=== PATIENT | female | born 2000 | race Caucasian/White ===

== ENCOUNTER 2023-09-23 14:28 | Emergency (ER) | payer SELFPAY ==
[2023-09-23 15:00] LABS: GLUCOSE, URINE (UA) 250 mg/dL (NEGATIVE); KETONES,URINE (UA) >=80 mg/dL (NEGATIVE)
[2023-09-23 15:05] LABS: BILIRUBIN,URINE NEGATIVE (NEGATIVE); CLARITY,URINE SL. CLOUDY (CLEAR); HCG UR QUAL NEGATIVE; ICTOTEST,URINE NEGATIVE
[2023-09-23 15:05] LABS: BASOPHILS % (AUTO) 0.2 %; EOSINOPHILS # (AUTO) 0.1 10^3/uL (0.0-0.7); EOSINOPHILS % (AUTO) 0.3 %; HGB - HEMOGLOBIN 13.8 g/dL (12.0-16.0); LYMPHOCYTES # (AUTO) 0.8 10^3/uL (1.5-3.5); LYMPHOCYTES % (AUTO) 4.5 %; MEAN CORPUSCULAR HEMOGLOBIN 29.7 pg (27.0-31.0); MEAN CORPUSCULAR HGB CONC 32.9 g/dL (32.0-36.0); MEAN CORPUSCULAR VOLUME 90.5 fL (81.0-99.0); MEAN PLATELET VOLUME 8.7 fL (7.9-10.8); MONOCYTES # (AUTO) 1.3 10^3/uL (0.0-1.0); MONOCYTES % (AUTO) 7.3 %; NEUTROPHILS # (AUTO) 15.9 10^3/uL (1.5-6.6); NEUTROPHILS % (AUTO) 87.3 %; PLT - PLATELET COUNT 323 10^3/uL (130-450); RED BLOOD COUNT 4.64 10^6/uL (4.20-5.40); RED CELL DISTRIBUTION WIDTH 11.7 % (12.0-15.0); WHITE BLOOD COUNT 18.2 x10^3/uL (4.8-10.8)
[2023-09-23 15:09] LABS: BACTERIA,URINE Few /HPF (None Seen); MUCUS,URINE Moderate Strands; SQUAMOUS EPITHELIAL CELL,UR MANY Squamous (<= Few); WBC,URINE >25 /HPF (0-5)
[2023-09-23 15:20] LABS: ALBUMIN 4.8 g/dL (3.2-5.5); ALBUMIN/GLOBULIN RATIO 1.5 (1.0-2.2); ALKALINE PHOSPHATASE 92 IU/L (42-121); ALT ALANINE AMINOTRANSFERASE 8 IU/L (10-60); AST ASPARTATE AMINOTRANSFERASE 13 IU/L (10-42); BILIRUBIN,TOTAL 0.8 mg/dL (0.2-1.0); BUN - BLOOD UREA NITROGEN 10 mg/dL (6-20); CALCIUM 9.9 mg/dL (8.5-10.3); CARBON DIOXIDE - CO2 23 mmol/L (21-32); CHLORIDE 100 mmol/L (101-111); CREATININE 0.7 mg/dL (0.6-1.3); GFR - MDRD 105 (>89); GLUCOSE 137 mg/dL (74-104); POTASSIUM 3.3 mmol/L (3.5-4.5); SODIUM 134 mmol/L (135-145); TOTAL PROTEIN 7.9 g/dL (6.4-8.9)
[2023-09-23] MEDS: ACETAMINOPHEN 325 MG TABLET PO STA (15:21)
[2023-09-23] MEDS: SODIUM CHLORIDE 0.9% 1,000 ML IV STA ×2 (15:21→15:22)
[2023-09-23 15:29] LABS: LIPASE < 10 U/L (11-82)
[2023-09-23] MEDS: cefTRIAXone 1 GM VIAL IVP STA (15:36)
--- NOTE | 2023-09-23 16:08 | ED Physician Documentation ---
History of Present Illness - Stated complaint Stated Complaint: ,SOA,ABD PX - Chief complaint Chief Complaint: Abd Pain - History obtained from History obtained from: Patient - History of Present Illness Timing: Today Pain level max: 0 Pain level now: 0 - Additonal information Additional information: 22-year-old female presents to the emergency department complaining of dysuria and burning with urination x1 week. 2 to 3 days ago started developing left flank pain. Today developed a fever. No vomiting. No diarrhea. No constipation. No STI exposure. No changes in sexual partners. No vaginal bleeding or discharge. Nothing makes it better or worse. Has not had similar symptoms previously. Review of Systems Constitutional: reports: Fever, Chills Respiratory: denies: Cough GI: denies: Abdominal Pain, Nausea, Vomiting, Diarrhea Skin: denies: Rash Musculoskeletal: denies: Neck pain, Back pain Neurologic: denies: Focal weakness, Numbness, Headache PD PAST MEDICAL HISTORY - Past Medical History Past Medical History: No - Past Surgical History Past Surgical History: No - Present Medications Home Medications: Ambulatory Orders Medication Instructions Recorded Confirmed Cefpodoxime Proxetil [Vantin] 200 mg PO Q12H #40 tablet 09/23/23 Ondansetron Odt [Zofran] 4 mg TL Q6H PRN #10 tablet 09/23/23 - Allergies Allergies/Adverse Reactions: Allergies Allergy/AdvReac Type Severity Reaction Status Date / Time No Known Drug Allergies Allergy Verified 09/23/23 14:34 - Social History Does the pt smoke?: No Smoking Status: Never smoker PD ED PE NORMAL - Vitals Vital signs reviewed: Yes - General General: Alert and oriented X 3, No acute distress - HEENT HEENT: Moist mucous membranes - Neck Neck: Supple, no meningeal sign - Cardiac Cardiac: RRR, Strong equal pulses - Respiratory Respiratory: No respiratory distress, Clear bilaterally - Abdomen Abdomen: Soft, Non tender, Non distended - Back Back: Other (L CVAT, R side normal) - Derm Derm: Warm and dry, No rash - Extremities Extremities: No edema, No calf tenderness / cord - Neuro Neuro: Alert and oriented X 3 - Psych Psych: Normal mood, Normal affect Results - Vitals Vitals: Vital Signs - 24 hr 09/23/23 09/23/23 09/23/23 14:32 16:23 16:24 Temperature 38.1 C H 37.2 C Heart Rate 121 H 104 H Respiratory 22 18 Rate Blood Pressure 127/70 100/70 O2 Saturation 97 100 Oxygen O2 Source Room air - Labs Labs: Laboratory Tests 09/23/23 09/23/23 09/23/23 14:47 14:58 14:58 WBC 18.2 H RBC 4.64 Hgb 13.8 Hct 42.0 MCV 90.5 MCH 29.7 MCHC 32.9 RDW 11.7 L Plt Count 323 MPV 8.7 Neut # (Auto) 15.9 H Lymph # (Auto) 0.8 L [place] # (Auto) 1.3 H Eos # (Auto) 0.1 Baso # (Auto) 0.0 Absolute Nucleated RBC 0.00 Nucleated RBC % 0.0 Sodium 134 L Potassium 3.3 L Chloride 100 L Carbon Dioxide 23 Anion Gap 11.0 BUN 10 Creatinine 0.7 Estimated GFR (MDRD) 105 Glucose 137 H Calcium 9.9 Total Bilirubin 0.8 AST 13 ALT 8 L Alkaline Phosphatase 92 Total Protein 7.9 Albumin 4.8 Globulin 3.1 Albumin/Globulin Ratio 1.5 Lipase < 10 L Urine Color ORANGE Urine Clarity SL. CLOUDY Urine pH 5.0 Ur Specific [place] 1.025 Urine Protein Urine Glucose (UA) 250 H Urine Ketones >=80 H Urine Occult Blood Urine Nitrite Urine Bilirubin NEGATIVE Urine Urobilinogen Ur Leukocyte Esterase Urine RBC 6-10 H Urine WBC >25 H Ur Squamous Epith Cells MANY Squamous H Urine Bacteria Few Urine Mucus Moderate Strands Ur Microscopic Review INDICATED Urine Culture Comments NOT INDICATED Urine HCG, Qual NEGATIVE PD Medical Decision Making - ED course Complexity details: reviewed results, re-evaluated patient, considered differential, d/w patient ED course: 22-year-old female with pyelonephritis. Given IV fluids. Given IV Rocephin. Declines pain medication for home. Will prescribe antibiotics for home. She is well-appearing, nontoxic. Tolerating p.o. without difficulty. Does not wish to stay in the hospital at this time. She will return if she worsens. Feels much better after IV fluids, antibiotics and Tylenol. Patient does not have any history of ureteral stones. We will hold off on CT at this time. Would consider if she re-presents. Patient counseled regarding signs and symptoms for which I believe and urgent re-evaluation would be necessary. Patient with good understanding of and agreement to plan and is comfortable going home at this time This document was made in part using voice recognition software. While efforts are made to proofread this document, sound alike and grammatical errors may occur. Departure - Departure Disposition: 01 Home, Self Care Clinical Impression: Pyelonephritis Condition: Good Instructions: ED Kidney Infec Female Follow-Up: your,doctor in 1 week [Other] Prescriptions: Cefpodoxime Proxetil [Vantin] 200 mg PO Q12H #40 tablet Ondansetron Odt [Zofran] 4 mg TL Q6H PRN #10 tablet PRN Reason: Nausea / Vomiting Comments: Your prescriptions were sent to [facility] in [place]. Please take all antibiotics until gone even if you are feeling better. Drink plenty of fluids. Return if you worsen such as worsening fevers, increasing pain, vomiting or other new or worrisome symptoms. You appear to have a kidney infection today. Forms: PCP List Discharge Date/Time: 09/23/23 17:07
[2023-09-23 17:10] VITALS: BP 100/70; O2SAT 100
== END 2023-09-23 17:07 | disposition home or self-care (01) ==
LOC: ED 14:28
DX: N12 Tubulo-interstitial nephritis, not specified as acute or chronic (principal)
CPT/HCPCS: 36415; 80053; 81001; 81003; 81025; 83690; 85025; 87086; 96374; 99284

== ENCOUNTER 2024-03-25 08:00 | Outpatient (CLI) | payer SELFPAY ==
[2024-03-25 22:57] LABS: CHLAMYDIA TRACHOMATIS DNA NEGATIVE (NEGATIVE); NEISSERIA GONORRHOEAE DNA NEGATIVE (NEGATIVE); TRICHOMONAS VAGINALIS DNA NEGATIVE (NEGATIVE)
== END 2024-03-25 23:59 | disposition home or self-care (01) ==
LOC: LAB.WC 08:00
PROVIDERS: ATTEND Obstetrics & Gynecology
DX: Z11.3 Encounter for screening for infections with a predominantly sexual mode of transmission (principal)
CPT/HCPCS: 87491; 87591; 87661